=== PATIENT | female | born 1980 | race Caucasian/White ===

== ENCOUNTER 2016-11-09 09:45 | Outpatient (CLI) | payer BC ==
[2016-11-12 14:50] LABS: Vitamin D, 25-OH, Total 20 ng/mL (30-100)
== END 2016-11-09 09:46 | disposition home or self-care (01) ==
LOC: LABHHL 09:45
PROVIDERS: ATTEND Internal Medicine
DX: E03.8 Other specified hypothyroidism (principal)
CPT/HCPCS: 36415; 80061; 82306; 82607; 83036; 84439; 84443